=== PATIENT | female | born 2000 | race Caucasian/White ===

== ENCOUNTER 2023-08-21 20:30 | Emergency (ER) | payer OTHER ==
[~2023-08-21] VITALS: Ht 165.1 cm; Wt 72.6 kg
[2023-08-21 21:08] LABS: BASO % 0.2 % (0.0-1.0); EOS # 0.1 10^3/uL (0.0-0.5); EOS % 0.9 % (0.0-3.0); HEMOGLOBIN 12.3 g/dl (12.0-15.5); LYMPH # 1.8 10^3/uL (1.5-5.0); LYMPH % 31.4 % (24.0-44.0); MEAN CORPUSCULAR HEMOGLOBIN 30.9 pg (27.0-33.0); MEAN CORPUSCULAR HGB CONC 33.2 g/dl (32.0-36.5); MONO # 0.8 10^3/uL (0.0-0.8); MONO % 14.2 % (2.0-8.0); NEUTROPHILS # 3.1 10^3/uL (1.5-8.5); NEUTROPHILS % 53.1 % (36.0-66.0); PLATELET COUNT, AUTOMATED 184 10^3/uL (150-450); RED BLOOD COUNT 3.98 10^6/uL (4.00-5.40); WHITE BLOOD COUNT 5.8 10^3/uL (4.0-10.0)
[2023-08-21 21:35] LABS: LIPASE 32 U/L (12-53)
[2023-08-21 21:37] LABS: ALBUMIN 3.4 G/DL (3.2-5.2); ALKALINE PHOSPHATASE 77 U/L (46-116); ALT/SGPT 16 U/L (7.0-40); AST/SGOT 15 U/L (<34); BILIRUBIN,DIRECT < 0.1 MG/DL (<0.4); BILIRUBIN,TOTAL 0.3 MG/DL (0.3-1.2); BLOOD UREA NITROGEN 8 MG/DL (9-23); CARBON DIOXIDE LEVEL 28 MMOL/L (20-31); CHLORIDE LEVEL 105 MMOL/L (98-107); CREATININE FOR GFR 0.61 MG/DL (0.55-1.30); GLOMERULAR FILTRATION RATE > 60.0 (>60); GLUCOSE, FASTING 106 MG/DL (60-100); POTASSIUM SERUM 3.9 MMOL/L (3.5-5.1); SODIUM LEVEL 138 MMOL/L (136-145); TOTAL PROTEIN 6.9 G/DL (5.7-8.2)
[2023-08-21 21:56] LABS: HCG, SERUM QUALITATIVE NEGATIVE (NEGATIVE)
[2023-08-22] MEDS: ONDANSETRON 4MG 2ML VIAL IV ONE (04:33)
[2023-08-22] MEDS: MORPHINE 2 MG/ML 1ML VIAL IV ONE (04:33)
[2023-08-22] MEDS ORDERED: ISOVUE-370 76% 100ML VIAL As Ordered ONE (04:55)
[2023-08-22] MEDS ORDERED: CEFD1CAP9 PO (07:24)
[2023-08-22] MEDS: cefTRIAXone SOD 2 GM in D5W MINI-BAG PLUS 50 ML IV ONE (07:46)
[2023-08-22 08:30] VITALS: BP 108/61; TEMP 97.8; O2SAT 99
== END 2023-08-22 08:50 | disposition home or self-care (01) ==
LOC: M ED 20:30
DX: N10 Acute pyelonephritis (principal); Z79.2 Long term (current) use of antibiotics
CPT/HCPCS: 74177; 80048; 80076; 81001; 83690; 84703; 85025; 87088; 87186; 96365; 96375; 99285; J0696; J2405; Q9967

== ENCOUNTER 2024-05-23 16:44 | Emergency (ER) | payer OTHER ==
[~2024-05-23] VITALS: Ht 165.1 cm; Wt 74.1 kg
[~2024-05-23 16:44] MED LIST: CEFD1CAP9 PO
[2024-05-23 17:49] LABS: HEMATOCRIT 38.4 % (36.0-47.0); HEMOGLOBIN 13.1 g/dl (12.0-15.5); MEAN CORPUSCULAR HEMOGLOBIN 31.6 pg (27.0-33.0); MEAN CORPUSCULAR HGB CONC 34.1 g/dl (32.0-36.5); MEAN CORPUSCULAR VOLUME 92.5 fl (80.0-96.0); PLATELET COUNT, AUTOMATED 236 10^3/uL (150-450); RED BLOOD COUNT 4.15 10^6/uL (4.00-5.40); WHITE BLOOD COUNT 5.2 10^3/uL (4.0-10.0)
[2024-05-23 18:04] LABS: AMPHETAMINES LEVEL URINE NEGATIVE (NEGATIVE); BARBITURATES URINE NEGATIVE (NEGATIVE); COCAINE METABOLITE URINE NEGATIVE (NEGATIVE); METHADONE URINE NEGATIVE (NEGATIVE)
[2024-05-23 18:05] LABS: BENZODIAZEPINES URINE NEGATIVE (NEGATIVE); CANNABINOIDS URINE NEGATIVE (NEGATIVE); OPIATES URINE NEGATIVE (NEGATIVE); PHENCYCLIDINE URINE NEGATIVE (NEGATIVE)
[2024-05-23 18:06] LABS: ETHYL ALCOHOL (ETHANOL) < 0.003 % (0.000-0.010)
[2024-05-23 18:08] LABS: SALICYLATE LEVEL < 3.0 MG/DL (<30)
[2024-05-23 18:09] LABS: ALBUMIN 3.8 G/DL (3.2-5.2); ALKALINE PHOSPHATASE 83 U/L (35-104); ALT/SGPT 10 U/L (7.0-40); AST/SGOT < 8 U/L (<34); BILIRUBIN,DIRECT 0.1 MG/DL (<0.4); BILIRUBIN,TOTAL 0.3 MG/DL (0.3-1.2); BLOOD UREA NITROGEN 12 MG/DL (9-23); CALCIUM LEVEL 9.1 MG/DL (8.5-10.1); CARBON DIOXIDE LEVEL 25 MMOL/L (20-31); CHLORIDE LEVEL 108 MMOL/L (98-107); CREATININE FOR GFR 0.53 MG/DL (0.55-1.30); GLOMERULAR FILTRATION RATE > 60.0 (>60); GLUCOSE, FASTING 93 MG/DL (60-100); POTASSIUM SERUM 4.2 MMOL/L (3.5-5.1); SODIUM LEVEL 138 MMOL/L (136-145); TOTAL PROTEIN 7.5 G/DL (5.7-8.2)
[2024-05-23 18:11] LABS: THYROID STIMULATING HORMONE 0.684 uIU/ML (0.55-4.78)
[2024-05-23 18:25] LABS: HCG, SERUM QUALITATIVE NEGATIVE (NEGATIVE)
[2024-05-23 20:41] VITALS: BP 123/73; TEMP 96.7; O2SAT 98
== END 2024-05-23 20:39 | disposition home or self-care (01) ==
LOC: EDBD 16:44 → M ED 16:44
DX: F43.0 Acute stress reaction (principal); S70.922A Unspecified superficial injury of left thigh, initial encounter; X78.9XXA Intentional self-harm by unspecified sharp object, initial encounter; Y92.9 Unspecified place or not applicable; Y93.9 Activity, unspecified; Y99.9 Unspecified external cause status

== ENCOUNTER 2024-09-11 20:06 | Emergency (ER) | payer OTHER ==
[~2024-09-11] VITALS: Ht 165.1 cm; Wt 79.6 kg
[2024-09-11 20:12] VITALS: BP 132/70; TEMP 97.8; O2SAT 97
== END 2024-09-11 23:53 | disposition left against medical advice (07) ==
LOC: M ED 20:06
DX: Z53.21 Procedure and treatment not carried out due to patient leaving prior to being seen by health care provider (principal)

== ENCOUNTER → 2024-09-13 | Outpatient (CLI) | payer OTHER ==
[~2024-09-13] MED LIST changes: +ALTA1TAB3 PO
== END ==
LOC: M PLAIMG 07:29
PROVIDERS: ATTEND Orthopaedic Surgery
DX: S52.572A Other intraarticular fracture of lower end of left radius, initial encounter for closed fracture (principal); X58.XXXA Exposure to other specified factors, initial encounter; Y92.9 Unspecified place or not applicable; Y93.9 Activity, unspecified; Y99.9 Unspecified external cause status; S52.615A Nondisplaced fracture of left ulna styloid process, initial encounter for closed fracture

== ENCOUNTER 2024-09-18 08:42 | Day surgery (SDC) | payer OTHER ==
[~2024-09-18] VITALS: Ht 165.1 cm; Wt 79.3 kg
[2024-09-18] MEDS ORDERED: fentaNYL 250 MCG/5 ML INJECTION As Ordered ONE (10:14)
[2024-09-18] MEDS ORDERED: propofoL 200 MG/20 ML VIAL As Ordered ONE (10:14)
[2024-09-18] MEDS ORDERED: MIDAZOLAM INJ 2MG/2ML VIAL As Ordered ONE (10:15)
[2024-09-18] MEDS ORDERED: LIDOCAINE 2% 100MG/5ML SDV (FOR ANES.) As Ordered ONE (10:15)
[2024-09-18] MEDS: LR 1,000 ML IV SCH (10:16)
[2024-09-18] MEDS: MIDAZOLAM INJ 2MG/2ML VIAL IV PRN (10:46)
[2024-09-18] MEDS: fentaNYL 100 MCG/2 ML INJECTION IV PRN (10:46)
[2024-09-18] MEDS: dexAMETHasone 10MG/1ML VIAL PRES.FREE PN ONE (10:47)
[2024-09-18] MEDS: ceFAZolin SOD 2 GM in IV 1 EA IV ONE (11:03)
[2024-09-18] MEDS: TRANEXAMIC ACID 100 MG/ML 10ML VIAL As Ordered ONE (11:15)
[2024-09-18] MEDS: TRANEXAMIC ACID 100 MG/ML 10ML VIAL IV ONE (11:30)
[2024-09-18] MEDS ORDERED: ONDANSETRON 4MG 2ML VIAL As Ordered ONE (11:57)
[2024-09-18] MEDS ORDERED: METOCLOPRAMIDE INJ 10MG/2ML VIAL As Ordered ONE (11:57)
[2024-09-18] MEDS ORDERED: KETOROLAC 60MG 2ML VIAL As Ordered ONE (11:57)
[2024-09-18] MEDS ORDERED: ACETAMINOPHEN 1000MG/100ML IV BAG As Ordered ONE (12:00)
[2024-09-18] MEDS ORDERED: DESFLURANE 240 ML INHALANT As Ordered ONE (12:45)
[2024-09-18] MEDS: VANCOMYCIN 1000MG/20ML VIAL As Ordered ONE (13:00)
[2024-09-18] MEDS ORDERED: oxyCODONE 5MG TAB PO PRN (13:30)
[2024-09-18] MEDS ORDERED: fentaNYL 100 MCG/2 ML INJECTION IV PRN (13:30)
[2024-09-18] MEDS ORDERED: HYDROMORPHONE HCL 0.5 MG/ 0.5 ML SYRINGE IV PRN (13:30)
[2024-09-18] MEDS ORDERED: ONDANSETRON 4MG 2ML VIAL IV PRN (13:30)
[2024-09-18] MEDS ORDERED: LR 1,000 ML IV SCH (13:30)
[2024-09-18] MEDS ORDERED: LACRILUBE (AKWA TEARS) OPHTH OINT 3.5GM As Ordered ONE (13:52)
[2024-09-18 15:30] VITALS: BP 116/68; TEMP 98.1; O2SAT 99
== END 2024-09-18 15:40 | disposition home or self-care (01) ==
LOC: M SDC 08:42
PROVIDERS: ATTEND Orthopaedic Surgery
DX: S52.572A Other intraarticular fracture of lower end of left radius, initial encounter for closed fracture (principal); V00.311A Fall from snowboard, initial encounter; Y93.23 Activity, snow (alpine) (downhill) skiing, snowboarding, sledding, tobogganing and snow tubing; Y92.39 Other specified sports and athletic area as the place of occurrence of the external cause
CPT/HCPCS: 25608; 64418; 76000; 81025; C1713; J0131; J0665; J0690; J1100; J1885; J2250; J2405; J2765; J3010; J3370